=== PATIENT | female | born 1965 | race Caucasian/White ===

== ENCOUNTER 2018-04-17 16:10 | Inpatient (IN) | payer MEDICAID ==
[~2018-04-17] VITALS: Ht 154.9 cm; Wt 90.3 kg
[2018-04-17 16:54] LABS: BASOPHIL % 0.4 % (0-2); PLATELET COUNT 202 x10^3mcL (130-400)
[2018-04-17 16:55] LABS: RED CELL DISTRIBUTION WIDTH 15.9 % (11.5-14.5)
[2018-04-17 17:01] LABS: CALCIUM 8.9 mg/dL (8.5-10.1); CREATININE SERUM 1.1 mg/dL (0.6-1.0); POTASSIUM SERUM 3.9 mmol/L (3.5-5.1)
[2018-04-17 17:06] LABS: BILIRUBIN TOTAL 1.18 mg/dL (0.20-1.00); TOTAL PROTEIN, SERUM 7.2 g/dL (6.4-8.2)
[2018-04-17 17:07] LABS: ALBUMIN 2.3 g/dL (3.4-5.0)
[2018-04-17 17:18] LABS: UA SPECIFIC GRAVITY 1.025 (1.005-1.035); microscopic required? YES; urine erythrocyte 2+ (NEGATIVE)
[2018-04-17] MEDS ORDERED: SIMVASTATIN40 M1 PO (18:24)
[2018-04-17] MEDS ORDERED: METFORMIN HCL850 MG PO (18:24)
[2018-04-17] MEDS ORDERED: GLYBURIDE5 MG PO (18:24)
[2018-04-17] MEDS ORDERED: LISINOPRIL40 MG PO (18:24)
[2018-04-17] MEDS ORDERED: HYDROCHLOROTH12.5 M3 PO (18:24)
[2018-04-17] MEDS ORDERED: NOR10 PO (18:25)
[2018-04-17 18:31] LABS: AMPHETAMINE QUAL UR NONE DETECTED (See below)
[2018-04-17 18:35] LABS: MAGNESIUM 2.5 mg/dL (1.8-2.4); PHOSPHOROUS 4.2 mg/dL (2.5-4.9)
[2018-04-17 18:37] LABS: CHOLESTEROL/HDL RATIO 5.2
[2018-04-17 18:43] LABS: T3 TOTAL 0.91 ng/mL
[2018-04-17 18:56] LABS: FREE T4 0.93 ng/dL (0.76-1.46); FREE THYROXINE INDEX 2.5 ug/dL (1.4-4.5); T4(THYROXINE) 6.9 ug/dL (4.7-13.3)
[2018-04-17 20:19] VITALS: BP 172/96
[2018-04-17 20:38] LABS: IRON 82 ug/dL (50-170); TOTAL IRON BINDING CAPACITY 318 ug/dL (250-450)
[2018-04-17 21:56] VITALS: BP 159/87
[2018-04-17 23:00] VITALS: BP 140/72
[2018-04-18 03:00] VITALS: BP 144/76
[2018-04-18 06:13] LABS: PLATELET COUNT 165 x10^3mcL (130-400)
[2018-04-18 06:15] LABS: BASOPHIL % 2.2 % (0-2); RED CELL DISTRIBUTION WIDTH 16.3 % (11.5-14.5)
[2018-04-18 06:24] LABS: CALCIUM 8.1 mg/dL (8.5-10.1); CARBON DIOXIDE 25.2 mmol/L (21-32); CREATININE SERUM 1.2 mg/dL (0.6-1.0); POTASSIUM SERUM 4.1 mmol/L (3.5-5.1)
[2018-04-18 08:30] VITALS: BP 122/57
[2018-04-18 12:45] VITALS: BP 143/76
[2018-04-18 16:45] VITALS: BP 150/92
[2018-04-18 19:48] VITALS: BP 136/72
[2018-04-18 23:28] VITALS: BP 123/53
[2018-04-19 03:11] VITALS: BP 126/56
[2018-04-19 05:34] LABS: BASOPHIL % 0.7 % (0-2); PLATELET COUNT 211 x10^3mcL (130-400)
[2018-04-19 05:48] LABS: CARBON DIOXIDE 31.9 mmol/L (21-32); CREATININE SERUM 1.4 mg/dL (0.6-1.0); MAGNESIUM 2.2 mg/dL (1.8-2.4); PHOSPHOROUS 5.2 mg/dL (2.5-4.9); POTASSIUM SERUM 3.5 mmol/L (3.5-5.1); RED CELL DISTRIBUTION WIDTH 15.6 % (11.5-14.5)
[2018-04-19 05:49] LABS: ALBUMIN 1.8 g/dL (3.4-5.0)
[2018-04-19 07:51] VITALS: BP 137/70
[2018-04-19 08:18] VITALS: Ht 154.9 cm; Wt 90.3 kg
[2018-04-19 11:32] VITALS: BP 113/64
[2018-04-19 15:47] VITALS: BP 128/69
[2018-04-19 19:14] VITALS: BP 144/79
[2018-04-19 20:36] VITALS: BP 150/68
[2018-04-20 05:52] VITALS: BP 117/52
[2018-04-20 07:14] LABS: CHOLESTEROL/HDL RATIO 5.2
[2018-04-20 08:35] VITALS: BP 152/58
[2018-04-20 12:15] VITALS: BP 140/68
[2018-04-20 13:10] LABS: CALCIUM 8.7 mg/dL (8.5-10.1); CARBON DIOXIDE 31.9 mmol/L (21-32); CREATININE SERUM 1.3 mg/dL (0.6-1.0); POTASSIUM SERUM 3.9 mmol/L (3.5-5.1)
[2018-04-20 17:05] LABS: CARBON DIOXIDE 34.2 mmol/L (21-32); CREATININE SERUM 1.3 mg/dL (0.6-1.0); POTASSIUM SERUM 3.9 mmol/L (3.5-5.1)
[2018-04-20 17:13] VITALS: BP 154/82
[2018-04-20 21:33] VITALS: BP 146/60
[2018-04-20 23:18] VITALS: BP 147/67
[2018-04-21 05:54] VITALS: BP 137/72
[2018-04-21 06:10] LABS: CALCIUM 7.9 mg/dL (8.5-10.1); CARBON DIOXIDE 32.7 mmol/L (21-32); CREATININE SERUM 1.3 mg/dL (0.6-1.0); MAGNESIUM 2.3 mg/dL (1.8-2.4); PHOSPHOROUS 4.5 mg/dL (2.5-4.9); POTASSIUM SERUM 3.7 mmol/L (3.5-5.1)
[2018-04-21 06:46] LABS: BASOPHIL % 1.6 % (0-2); PLATELET COUNT 183 x10^3mcL (130-400)
[2018-04-21 07:40] LABS: RED CELL DISTRIBUTION WIDTH 15.1 % (11.5-14.5)
[2018-04-21 09:05] LABS: microalbumin:creatinine ratio 7025.6 (0.0-30.0)
[2018-04-21 09:44] VITALS: BP 157/58
[2018-04-21 14:14] VITALS: BP 157/47
[2018-04-21 17:10] VITALS: BP 157/47
[2018-04-21 17:55] VITALS: BP 167/78
[2018-04-21 20:52] VITALS: BP 163/79
[2018-04-22 05:26] VITALS: BP 144/66
[2018-04-22 06:21] LABS: CALCIUM 8.5 mg/dL (8.5-10.1); CARBON DIOXIDE 32.3 mmol/L (21-32); CREATININE SERUM 1.3 mg/dL (0.6-1.0); POTASSIUM SERUM 3.7 mmol/L (3.5-5.1)
[2018-04-22 06:29] LABS: BASOPHIL % 1.6 % (0-2); PLATELET COUNT 194 x10^3mcL (130-400)
[2018-04-22 06:43] LABS: RED CELL DISTRIBUTION WIDTH 15.5 % (11.5-14.5)
[2018-04-22 08:22] VITALS: BP 165/67
[2018-04-22 12:43] VITALS: BP 155/75
[2018-04-22 17:06] VITALS: BP 144/70
[2018-04-22 17:07] VITALS: BP 150/83
[2018-04-22 19:50] VITALS: BP 147/72
[2018-04-23 04:49] VITALS: BP 124/58
[2018-04-23 08:55] VITALS: BP 131/80
[2018-04-23] MEDS ORDERED: COR6 PO (11:09)
[2018-04-23] MEDS ORDERED: ADA30 PO (11:09)
[2018-04-23 11:22] VITALS: BP 131/80
== END 2018-04-23 13:42 | disposition home or self-care (01) | DRG 190 ==
LOC: ED 16:10 → IC 17:34 → DU 04-19 18:20
PROVIDERS: Emergency Medicine; Family Medicine; Internal Medicine
DX: I21.A1 Myocardial infarction type 2 (principal); N17.0 Acute kidney failure with tubular necrosis; J96.01 Acute respiratory failure with hypoxia; E43 Unspecified severe protein-calorie malnutrition; I50.31 Acute diastolic (congestive) heart failure; D68.69 Other thrombophilia; E11.65 Type 2 diabetes mellitus with hyperglycemia; I11.0 Hypertensive heart disease with heart failure; E78.5 Hyperlipidemia, unspecified; D50.9 Iron deficiency anemia, unspecified; I16.0 Hypertensive urgency; E02 Subclinical iodine-deficiency hypothyroidism; R80.9 Proteinuria, unspecified; Z77.22 Contact with and (suspected) exposure to environmental tobacco smoke (acute) (chronic); E66.9 Obesity, unspecified; Z68.34 Body mass index [BMI] 34.0-34.9, adult; G47.33 Obstructive sleep apnea (adult) (pediatric); Z79.84 Long term (current) use of oral hypoglycemic drugs
CPT/HCPCS: 82962; 83880; 84439; A9500; J1644; J1815; J1940; J2785; J3490; J7030; J7620; Q0092

== ENCOUNTER 2018-04-29 17:51 | Emergency (ER) | payer MEDICAID ==
[~2018-04-29] VITALS: Ht 154.9 cm; Wt 83.9 kg
[~2018-04-29 17:51] MED LIST: ADA30 PO; COR6 PO; GLYBURIDE5 MG PO; HYDROCHLOROTH12.5 M3 PO; LISINOPRIL40 MG PO; METFORMIN HCL850 MG PO; NOR10 PO; SIMVASTATIN40 M1 PO
[2018-04-29 18:00] VITALS: Ht 154.9 cm; Wt 83.9 kg
[2018-04-29 21:10] LABS: BASOPHIL % 0.8 % (0-2); PLATELET COUNT 256 x10^3mcL (130-400)
[2018-04-29 21:12] LABS: RED CELL DISTRIBUTION WIDTH 15.5 % (11.5-14.5)
[2018-04-29 21:19] LABS: CALCIUM 8.5 mg/dL (8.5-10.1); CARBON DIOXIDE 27.7 mmol/L (21-32); CREATININE SERUM 1.6 mg/dL (0.6-1.0); POTASSIUM SERUM 4.1 mmol/L (3.5-5.1)
[2018-04-29 21:22] LABS: rbc morphology (normal/abnorm) ABNORMAL (NORMAL)
[2018-04-29 21:23] LABS: ovalocyte/elliptocyte 1+
[2018-04-29 21:24] LABS: BILIRUBIN TOTAL 0.6 mg/dL (0.20-1.00)
[2018-04-29 21:27] LABS: ALBUMIN 2.3 g/dL (3.4-5.0)
[2018-04-29 22:10] LABS: UA SPECIFIC GRAVITY >=1.030 (1.005-1.035); microscopic required? YES; urine erythrocyte 3+ (NEGATIVE)
[2018-04-30 00:18] VITALS: BP 142/80
== END 2018-04-30 00:18 | disposition short-term general hospital (02) ==
LOC: ED 17:51 → DU 22:17
PROVIDERS: Emergency Medicine
DX: R06.00 Dyspnea, unspecified (principal); R60.1 Generalized edema; N28.9 Disorder of kidney and ureter, unspecified; I10 Essential (primary) hypertension; E11.9 Type 2 diabetes mellitus without complications; E78.00 Pure hypercholesterolemia, unspecified
CPT/HCPCS: 83880; J1940; Q0092

== ENCOUNTER 2018-05-11 17:14 | Inpatient (IN) | payer MEDICAID ==
[~2018-05-11] VITALS: Ht 154.9 cm; Wt 96.0 kg
[2018-05-11 17:19] VITALS: Ht 154.9 cm; Wt 96.0 kg
[2018-05-11 18:22] LABS: BASOPHIL % 0.4 % (0-2); PLATELET COUNT 186 x10^3mcL (130-400)
[2018-05-11 18:24] LABS: RED CELL DISTRIBUTION WIDTH 15.5 % (11.5-14.5)
[2018-05-11] MEDS ORDERED: FUROSEMIDE40 MG PO (19:26)
[2018-05-11 19:56] LABS: UA SPECIFIC GRAVITY 1.025 (1.005-1.035); microscopic required? YES; urine erythrocyte TRACE (NEGATIVE)
[2018-05-11 20:01] LABS: CALCIUM 8.6 mg/dL (8.5-10.1); CARBON DIOXIDE 24.3 mmol/L (21-32); CREATININE SERUM 1.5 mg/dL (0.6-1.0); POTASSIUM SERUM 4.3 mmol/L (3.5-5.1)
[2018-05-11 20:06] LABS: AMPHETAMINE QUAL UR NONE DETECTED (See below)
[2018-05-11 20:07] LABS: BILIRUBIN TOTAL 1.21 mg/dL (0.20-1.00); MAGNESIUM 2.6 mg/dL (1.8-2.4); T4(THYROXINE) 5.1 ug/dL (4.7-13.3); TOTAL PROTEIN, SERUM 6.6 g/dL (6.4-8.2)
[2018-05-11 20:17] LABS: ALBUMIN 2.4 g/dL (3.4-5.0)
[2018-05-11 22:12] LABS: CHOLESTEROL/HDL RATIO 4.3; PHOSPHOROUS 4.2 mg/dL (2.5-4.9)
[2018-05-11 22:29] VITALS: BP 150/68
[2018-05-12 05:39] VITALS: BP 103/61
[2018-05-12 05:55] VITALS: BP 103/61
[2018-05-12 07:26] LABS: TOTAL IRON BINDING CAPACITY 314 ug/dL (250-450)
[2018-05-12 07:31] LABS: CARBON DIOXIDE 28.3 mmol/L (21-32); CREATININE SERUM 1.6 mg/dL (0.6-1.0); MAGNESIUM 2.5 mg/dL (1.8-2.4); PHOSPHOROUS 4.7 mg/dL (2.5-4.9); POTASSIUM SERUM 3.9 mmol/L (3.5-5.1)
[2018-05-12 07:54] LABS: IRON 14 ug/dL (50-170)
[2018-05-12 08:06] LABS: CALCIUM 8.8 mg/dL (8.5-10.1)
[2018-05-12 08:21] VITALS: BP 137/60
[2018-05-12 08:21] LABS: BASOPHIL % 0.6 % (0-2); PLATELET COUNT 167 x10^3mcL (130-400); RED BLOOD CELLS 3.39 M/mm3 (4.10-5.10); RED CELL DISTRIBUTION WIDTH 15.9 % (11.5-14.5)
[2018-05-12 11:59] VITALS: BP 110/60
[2018-05-12 16:28] VITALS: BP 134/71
[2018-05-12 20:59] VITALS: BP 133/64
[2018-05-13 05:43] VITALS: BP 116/52
[2018-05-13 07:28] LABS: CALCIUM 8.1 mg/dL (8.5-10.1); CARBON DIOXIDE 26.5 mmol/L (21-32); CREATININE SERUM 1.8 mg/dL (0.6-1.0); MAGNESIUM 2.5 mg/dL (1.8-2.4); PHOSPHOROUS 5.5 mg/dL (2.5-4.9); POTASSIUM SERUM 4.2 mmol/L (3.5-5.1)
[2018-05-13 07:32] LABS: BASOPHIL % 1.3 % (0-2); PLATELET COUNT 156 x10^3mcL (130-400)
[2018-05-13 07:33] LABS: RED CELL DISTRIBUTION WIDTH 15.8 % (11.5-14.5)
[2018-05-13 07:34] LABS: rbc morphology (normal/abnorm) ABNORMAL (NORMAL)
[2018-05-13 08:27] VITALS: BP 125/52
[2018-05-13 11:50] VITALS: BP 108/63
[2018-05-13 16:29] VITALS: BP 114/52
[2018-05-13 20:50] VITALS: BP 161/66
[2018-05-13 21:55] VITALS: BP 156/54
[2018-05-14 05:39] VITALS: BP 122/90
[2018-05-14 07:05] LABS: CALCIUM 8.6 mg/dL (8.5-10.1); CARBON DIOXIDE 30.3 mmol/L (21-32); CREATININE SERUM 1.8 mg/dL (0.6-1.0); MAGNESIUM 2.4 mg/dL (1.8-2.4); PHOSPHOROUS 5.3 mg/dL (2.5-4.9); POTASSIUM SERUM 3.9 mmol/L (3.5-5.1)
[2018-05-14 08:00] VITALS: BP 126/50
[2018-05-14 08:09] LABS: BASOPHIL % 1.9 % (0-2); PLATELET COUNT 177 x10^3mcL (130-400)
[2018-05-14 08:27] LABS: RED CELL DISTRIBUTION WIDTH 16.1 % (11.5-14.5)
[2018-05-14 16:45] VITALS: BP 148/64
[2018-05-14 21:33] VITALS: BP 156/57
[2018-05-15 05:13] VITALS: BP 152/61
[2018-05-15 08:42] VITALS: BP 152/61
[2018-05-15 09:02] VITALS: BP 145/55
[2018-05-15 10:10] LABS: BASOPHIL % 0.6 % (0-2); PLATELET COUNT 185 x10^3mcL (130-400)
[2018-05-15 10:14] LABS: RED CELL DISTRIBUTION WIDTH 16.1 % (11.5-14.5)
[2018-05-15 10:22] LABS: CALCIUM 8.7 mg/dL (8.5-10.1); CARBON DIOXIDE 35.7 mmol/L (21-32); CREATININE SERUM 1.5 mg/dL (0.6-1.0); POTASSIUM SERUM 3.6 mmol/L (3.5-5.1)
[2018-05-15] MEDS ORDERED: LASIX40 MG PO (11:50)
[2018-05-15] MEDS ORDERED: KLOR-CON M1010 MEQ PO (11:51)
[2018-05-15] MEDS ORDERED: ECO81 PO (11:52)
[2018-05-15] MEDS ORDERED: MUCINEX600 MG PO (11:53)
[2018-05-15] MEDS ORDERED: Z5 PO (11:53)
[2018-05-15 12:14] VITALS: BP 145/55
== END 2018-05-15 12:55 | disposition home or self-care (01) | DRG 194 ==
LOC: ED 17:14 → DU 21:23
PROVIDERS: Emergency Medicine; Internal Medicine; Internal Medicine Nephrology
DX: I13.0 Hypertensive heart and chronic kidney disease with heart failure and stage 1 through stage 4 chronic kidney disease, or unspecified chronic kidney disease (principal); J96.01 Acute respiratory failure with hypoxia; N17.0 Acute kidney failure with tubular necrosis; E43 Unspecified severe protein-calorie malnutrition; D68.69 Other thrombophilia; E11.21 Type 2 diabetes mellitus with diabetic nephropathy; E11.22 Type 2 diabetes mellitus with diabetic chronic kidney disease; N18.3 Chronic kidney disease, stage 3 (moderate); I50.43 Acute on chronic combined systolic (congestive) and diastolic (congestive) heart failure; E11.65 Type 2 diabetes mellitus with hyperglycemia; E66.01 Morbid (severe) obesity due to excess calories; E83.41 Hypermagnesemia; R80.9 Proteinuria, unspecified; E78.00 Pure hypercholesterolemia, unspecified; H54.62 Unqualified visual loss, left eye, normal vision right eye; Z68.41 Body mass index [BMI] 40.0-44.9, adult; Z79.84 Long term (current) use of oral hypoglycemic drugs
CPT/HCPCS: 36600; 82962; 83880; 94150; J0885-EC; J1940; J7620; Q0092

== ENCOUNTER 2018-05-19 16:24 | Inpatient (IN) | payer MEDICAID ==
[~2018-05-19] VITALS: Ht 154.9 cm; Wt 89.6 kg
[~2018-05-19 16:24] MED LIST changes: +ECO81 PO; +FUROSEMIDE40 MG PO; +KLOR-CON M1010 MEQ PO; +LASIX40 MG PO; +MUCINEX600 MG PO; +Z5 PO
[2018-05-19 16:34] VITALS: Ht 154.9 cm; Wt 89.6 kg
[2018-05-19 17:29] LABS: PLATELET COUNT 189 x10^3mcL (130-400)
[2018-05-19] MEDS ORDERED: LISINOPRIL40 MG PO (17:34)
[2018-05-19] MEDS ORDERED: LASIX40 MG PO (17:34)
[2018-05-19] MEDS ORDERED: GOOD SENSE ASPI81 M3 PO (17:35)
[2018-05-19] MEDS ORDERED: COREG6.25 M1 PO (17:35)
[2018-05-19] MEDS ORDERED: GLYBURIDE5 MG PO (17:35)
[2018-05-19] MEDS ORDERED: SIMVASTATIN40 M1 PO (17:35)
[2018-05-19 17:47] LABS: BAND NEUTROPHIL 0 % (0-10); BASOPHIL 0 % (0-2); MONOCYTE 12 % (0-7); SEGMENTED NEUTROPHILS 70 % (37-75); rbc morphology (normal/abnorm) ABNORMAL (NORMAL)
[2018-05-19 17:48] LABS: CALCIUM 7.7 mg/dL (8.5-10.1); CARBON DIOXIDE 29.4 mmol/L (21-32); CREATININE SERUM 2.8 mg/dL (0.6-1.0); POTASSIUM SERUM 3.6 mmol/L (3.5-5.1)
[2018-05-19 17:54] LABS: T3 TOTAL 0.62 ng/mL
[2018-05-19 17:55] LABS: FREE T4 0.98 ng/dL (0.76-1.46); FREE THYROXINE INDEX 1.8 ug/dL (1.4-4.5); T4(THYROXINE) 4.9 ug/dL (4.7-13.3)
[2018-05-19 17:57] LABS: CK-MB 1.1 ng/mL (0-3.6)
[2018-05-19 18:07] LABS: ALBUMIN 2.3 g/dL (3.4-5.0); BILIRUBIN TOTAL 1.06 mg/dL (0.20-1.00); C REACTIVE PROTEIN 2.2 mg/dL (<=0.9); TOTAL PROTEIN, SERUM 6.8 g/dL (6.4-8.2)
[2018-05-19 18:20] LABS: ERYTHROCYTE SED RATE 68 mm/hr (0-30)
[2018-05-19 20:19] LABS: CHOLESTEROL/HDL RATIO 4.8; MAGNESIUM 2.5 mg/dL (1.8-2.4); PHOSPHOROUS 4.2 mg/dL (2.5-4.9)
[2018-05-19 21:24] VITALS: BP 100/51
[2018-05-20 05:55] VITALS: BP 100/51
[2018-05-20 06:05] VITALS: BP 98/52
[2018-05-20 09:39] VITALS: BP 96/45
[2018-05-20 10:57] LABS: BASOPHIL % 0.2 % (0-2); PLATELET COUNT 177 x10^3mcL (130-400)
[2018-05-20 11:00] LABS: CALCIUM 7.4 mg/dL (8.5-10.1); CARBON DIOXIDE 28.6 mmol/L (21-32); CREATININE SERUM 3.3 mg/dL (0.6-1.0); MAGNESIUM 2.5 mg/dL (1.8-2.4); PHOSPHOROUS 5.3 mg/dL (2.5-4.9); POTASSIUM SERUM 3.9 mmol/L (3.5-5.1)
[2018-05-20 11:08] LABS: RED CELL DISTRIBUTION WIDTH 16.6 % (11.5-14.5)
[2018-05-20 11:09] LABS: rbc morphology (normal/abnorm) ABNORMAL (NORMAL)
[2018-05-20 13:26] VITALS: BP 117/65
[2018-05-20 17:07] VITALS: BP 122/67
[2018-05-20 20:49] VITALS: BP 120/58
[2018-05-21 06:09] LABS: BASOPHIL % 0.5 % (0-2); PLATELET COUNT 165 x10^3mcL (130-400)
[2018-05-21 06:15] VITALS: BP 129/65
[2018-05-21 06:21] LABS: TOTAL IRON BINDING CAPACITY 277 ug/dL (250-450)
[2018-05-21 06:26] LABS: CALCIUM 7.6 mg/dL (8.5-10.1); CARBON DIOXIDE 30.2 mmol/L (21-32); CREATININE SERUM 3.3 mg/dL (0.6-1.0); MAGNESIUM 2.7 mg/dL (1.8-2.4); PHOSPHOROUS 5.4 mg/dL (2.5-4.9); POTASSIUM SERUM 3.8 mmol/L (3.5-5.1)
[2018-05-21 06:27] LABS: IRON 12 ug/dL (50-170)
[2018-05-21 06:46] LABS: RED CELL DISTRIBUTION WIDTH 16.3 % (11.5-14.5)
[2018-05-21 09:24] VITALS: BP 120/46
[2018-05-21 13:53] VITALS: BP 155/69
[2018-05-21 16:31] VITALS: BP 167/60
[2018-05-21 16:49] LABS: UA SPECIFIC GRAVITY 1.015 (1.005-1.035); microscopic required? YES; urine erythrocyte TRACE (NEGATIVE)
[2018-05-21 17:06] LABS: AMPHETAMINE QUAL UR NONE DETECTED (See below)
[2018-05-21 17:30] VITALS: BP 157/79
[2018-05-21 20:45] VITALS: BP 158/64
[2018-05-22 05:52] VITALS: BP 160/69
[2018-05-22 06:45] LABS: BASOPHIL % 0.1 % (0-2); PLATELET COUNT 167 x10^3mcL (130-400)
[2018-05-22 07:32] LABS: RED CELL DISTRIBUTION WIDTH 16.5 % (11.5-14.5)
[2018-05-22 07:33] LABS: rbc morphology (normal/abnorm) ABNORMAL (NORMAL)
[2018-05-22 07:37] LABS: CALCIUM 7.8 mg/dL (8.5-10.1); CARBON DIOXIDE 29.8 mmol/L (21-32); CREATININE SERUM 2.9 mg/dL (0.6-1.0); MAGNESIUM 2.6 mg/dL (1.8-2.4); PHOSPHOROUS 5.2 mg/dL (2.5-4.9); POTASSIUM SERUM 4.3 mmol/L (3.5-5.1)
[2018-05-22 08:50] VITALS: BP 123/40
[2018-05-22 14:25] VITALS: BP 146/55
[2018-05-22 17:05] VITALS: BP 172/66
[2018-05-22 22:30] VITALS: BP 156/69
[2018-05-23 06:13] VITALS: BP 153/48
[2018-05-23 07:23] LABS: CALCIUM 8.4 mg/dL (8.5-10.1); CARBON DIOXIDE 28.9 mmol/L (21-32); CREATININE SERUM 2.7 mg/dL (0.6-1.0); MAGNESIUM 2.5 mg/dL (1.8-2.4); PHOSPHOROUS 4.6 mg/dL (2.5-4.9); POTASSIUM SERUM 3.6 mmol/L (3.5-5.1)
[2018-05-23 07:43] LABS: BASOPHIL % 0.7 % (0-2); PLATELET COUNT 159 x10^3mcL (130-400)
[2018-05-23 07:49] LABS: RED CELL DISTRIBUTION WIDTH 16.3 % (11.5-14.5); rbc morphology (normal/abnorm) ABNORMAL (NORMAL)
[2018-05-23 09:03] VITALS: BP 154/60
[2018-05-23 12:54] VITALS: BP 147/37
[2018-05-23 17:30] VITALS: BP 206/78
[2018-05-23 18:50] VITALS: BP 154/45
[2018-05-23 20:00] VITALS: BP 168/67
[2018-05-24 05:52] VITALS: BP 166/61
[2018-05-24 06:06] LABS: PLATELET COUNT 239 x10^3mcL (130-400)
[2018-05-24 06:39] LABS: CALCIUM 8.5 mg/dL (8.5-10.1); CREATININE SERUM 2.5 mg/dL (0.6-1.0); PHOSPHOROUS 4.2 mg/dL (2.5-4.9); POTASSIUM SERUM 3.6 mmol/L (3.5-5.1)
[2018-05-24 06:58] LABS: ALBUMIN 2.1 g/dL (3.4-5.0)
[2018-05-24 07:07] LABS: RED CELL DISTRIBUTION WIDTH 16.5 % (11.5-14.5)
[2018-05-24 09:11] LABS: rbc morphology (normal/abnorm) ABNORMAL (NORMAL)
[2018-05-24 09:44] LABS: BAND NEUTROPHIL 2 % (0-10); MONOCYTE 6 % (0-7); PLATELET MORPHOLOGY PLATELETS NORMAL; SEGMENTED NEUTROPHILS 68 % (37-75)
[2018-05-24 10:27] VITALS: BP 164/68
[2018-05-24 13:46] VITALS: BP 170/78
[2018-05-24 17:10] VITALS: BP 165/69
[2018-05-24 21:37] VITALS: BP 177/77
[2018-05-24 22:40] VITALS: BP 169/64
[2018-05-25 05:58] VITALS: BP 120/54
[2018-05-25 06:30] LABS: BASOPHIL % 0.5 % (0-2); PLATELET COUNT 264 x10^3mcL (130-400)
[2018-05-25 06:41] LABS: RED CELL DISTRIBUTION WIDTH 16.9 % (11.5-14.5)
[2018-05-25 06:51] LABS: CALCIUM 8.6 mg/dL (8.5-10.1); CREATININE SERUM 2.4 mg/dL (0.6-1.0); POTASSIUM SERUM 3.5 mmol/L (3.5-5.1)
[2018-05-25 09:12] VITALS: BP 159/71
[2018-05-25 12:45] VITALS: BP 119/53
[2018-05-25 17:00] VITALS: BP 178/67
[2018-05-25 19:50] VITALS: BP 159/53
[2018-05-26] VITALS (7 sets, daily range): BP systolic 115–169; BP diastolic 43–77
[2018-05-26 06:55] LABS: CALCIUM 8.9 mg/dL (8.5-10.1); CARBON DIOXIDE 29.5 mmol/L (21-32); CREATININE SERUM 2.7 mg/dL (0.6-1.0); POTASSIUM SERUM 3.7 mmol/L (3.5-5.1)
[2018-05-26 07:08] LABS: BASOPHIL % 0.5 % (0-2); PLATELET COUNT 281 x10^3mcL (130-400)
[2018-05-26 07:25] LABS: RED CELL DISTRIBUTION WIDTH 17.2 % (11.5-14.5)
[2018-05-27 05:48] VITALS: BP 106/61
[2018-05-27 06:17] LABS: BASOPHIL % 0.7 % (0-2); PLATELET COUNT 287 x10^3mcL (130-400)
[2018-05-27 06:22] LABS: RED CELL DISTRIBUTION WIDTH 17.9 % (11.5-14.5)
[2018-05-27 06:30] LABS: CALCIUM 8.6 mg/dL (8.5-10.1); CARBON DIOXIDE 30.8 mmol/L (21-32); CREATININE SERUM 3.2 mg/dL (0.6-1.0); MAGNESIUM 2.5 mg/dL (1.8-2.4); PHOSPHOROUS 4.7 mg/dL (2.5-4.9); POTASSIUM SERUM 4.3 mmol/L (3.5-5.1)
[2018-05-27 09:24] VITALS: BP 149/64
[2018-05-27 13:13] VITALS: BP 160/64
[2018-05-27 16:52] VITALS: BP 166/76
[2018-05-27 21:41] VITALS: BP 158/67
[2018-05-28 05:26] VITALS: BP 125/48
[2018-05-28 07:01] LABS: CALCIUM 8.5 mg/dL (8.5-10.1); CARBON DIOXIDE 31.9 mmol/L (21-32); CREATININE SERUM 3.3 mg/dL (0.6-1.0); POTASSIUM SERUM 4.2 mmol/L (3.5-5.1)
[2018-05-28 07:04] LABS: BASOPHIL % 0.4 % (0-2); PLATELET COUNT 282 x10^3mcL (130-400)
[2018-05-28 07:19] LABS: RED CELL DISTRIBUTION WIDTH 17.4 % (11.5-14.5)
[2018-05-28 09:40] VITALS: BP 152/72
[2018-05-28 12:56] VITALS: BP 144/75
[2018-05-28 17:29] VITALS: BP 176/79
[2018-05-28 19:44] VITALS: BP 148/78
== END 2018-05-28 22:13 | disposition home or self-care (01) | DRG 139 ==
LOC: ED 16:24 → DU 19:41
PROVIDERS: Family Medicine; Internal Medicine; Internal Medicine Nephrology; Specialist
DX: J18.9 Pneumonia, unspecified organism (principal); N17.0 Acute kidney failure with tubular necrosis; J96.21 Acute and chronic respiratory failure with hypoxia; E43 Unspecified severe protein-calorie malnutrition; I50.43 Acute on chronic combined systolic (congestive) and diastolic (congestive) heart failure; D68.69 Other thrombophilia; E11.22 Type 2 diabetes mellitus with diabetic chronic kidney disease; I13.0 Hypertensive heart and chronic kidney disease with heart failure and stage 1 through stage 4 chronic kidney disease, or unspecified chronic kidney disease; J90 Pleural effusion, not elsewhere classified; E11.65 Type 2 diabetes mellitus with hyperglycemia; N18.3 Chronic kidney disease, stage 3 (moderate); G47.33 Obstructive sleep apnea (adult) (pediatric); G90.8 Other disorders of autonomic nervous system; E87.1 Hypo-osmolality and hyponatremia; E83.41 Hypermagnesemia; E78.5 Hyperlipidemia, unspecified; Z79.82 Long term (current) use of aspirin; Z68.34 Body mass index [BMI] 34.0-34.9, adult; Z79.84 Long term (current) use of oral hypoglycemic drugs
CPT/HCPCS: 36600; 82962; 83880; 84439; 85378; 87804; 94150; 97110-GP; 97116-GP; J0885-EC; J1815; J1940; J2543; J2916; J3490; J7030; J7620; Q0092